=== PATIENT | male | born 1965 | race African-American/Black ===

== ENCOUNTER 2023-07-22 15:16 | Emergency (ER) | payer MEDICAID ==
[~2023-07-22] VITALS: Ht 188 cm; Wt 82.0 kg
[2023-07-22 15:21] VITALS: O2SAT 99
[2023-07-22] MEDS: KETOROLAC 30MG/ML VIAL IM STA (16:01)
[2023-07-22] MEDS: METOCLOPRAMIDE HCL 10MG/2ML VIAL IV STA (16:02)
[2023-07-22 16:06] LABS: BASOPHILS % 0.5 % (0.0-2.0); EOSINOPHILS % 0.2 % (0.0-5.0); HEMATOCRIT. 42.7 % (42.0-52.0); HEMOGLOBIN. 14.3 g/dL (14.0-18.0); LYMPHOCYTES % 10.1 % (20.0-50.0); MEAN CORPUSCULAR HEMOGLOBIN 32.7 pg (28.0-32.0); MEAN CORPUSCULAR HGB CONC 33.4 g/dL (31.0-37.0); MEAN CORPUSCULAR VOLUME 97.9 fL (80.0-94.0); MEAN PLATELET VOLUME 7.8 fl (7.4-10.4); MONOCYTES % 5.7 % (2.0-8.0); NEUTROPHILS % 83.5 % (40.0-76.0); PLATELET 234 x1000/uL (130-400); RED BLOOD CELL COUNT 4.36 mill/uL (4.7-6.1); RED CELL DISTRIBUTION WIDTH 12.5 % (11.6-14.6); WHITE BLOOD COUNT 6.4 x1000/uL (4.5-11.0)
[2023-07-22 16:14] LABS: INR 1.1; PROTHROMBIN TIME 12.2 sec (9.6-11.0)
[2023-07-22] MEDS: SODIUM CHLORIDE 0.9% 1,000 ML IV ONE (16:15)
[2023-07-22 16:17] LABS: ALANINE AMINOTRANSFERASE 16 IU/L (10-49); ALBUMIN 4.7 g/dL (3.2-4.8); ASPARTATE AMINOTRANSFERASE 28 IU/L (<34); BILIRUBIN TOTAL 0.8 mg/dL (0.1-1.0); CALCIUM 9.3 mg/dL (8.7-10.4); CARBON DIOXIDE 25 mEq/L (21-32); CHLORIDE 106 mEq/L (98-107); GLUCOSE 120 mg/dL (70-105); POTASSIUM 3.9 mEq/L (3.5-5.1); PROTEIN TOTAL 7.8 g/dL (6.0-8.3); SODIUM 138 mEq/L (136-145); UREA NITROGEN BLOOD 7 mg/dL (9-23)
[2023-07-22 17:08] LABS: CLARITY URINE CLEAR (CLEAR); COLOR URINE YELLOW (YELLOW); GLUCOSE URINE NEGATIVE (NEGATIVE); KETONES URINE NEGATIVE (NEGATIVE); LEUKOCYTE ESTERASE URINE NEGATIVE (NEGATIVE); NITRITE URINE NEGATIVE (NEGATIVE); OCCULT BLOOD URINE NEGATIVE (NEGATIVE); PH URINE 5.5 (4.5-8.0); PROTEIN URINE NEGATIVE (NEGATIVE); SPECIFIC GRAVITY URINE 1.018 (1.005-1.030)
[2023-07-22 17:41] VITALS: BP 154/70; PULSE 70; RESP 18; TEMP 98.6
== END 2023-07-22 17:56 | disposition home or self-care (01) ==
LOC: ER 15:16
DX: A08.39 Other viral enteritis (principal)
CPT/HCPCS: 80053; 81003; 83690; 85025; 85610; 36415; 74176; 96361; 96372; 96374; 99285; J1885; J2765; J7030; Z7610 ×3